=== PATIENT | female | born 2000 | race African-American/Black ===

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

== ENCOUNTER 2019-02-15 21:11 | Emergency (ER) | payer SELFPAY ==
[~2019-02-15] VITALS: Ht 167.6 cm; Wt 72.6 kg
--- NOTE | 2019-02-15 21:45 | PHYS DOC ---
Past Medical History Past Medical History: No Pertinent History Past Surgical History: No Surgical History Additional Past Surgical Histo: abcess removed from vocal cords x2 Alcohol Use: None Drug Use: None Adult General Chief Complaint Chief Complaint: VAGINAL BLEEDING HPI HPI Patient is a 18 year old female who presents with complaining of abdominal pain in . Patient states she had LMP of January 06 and because of morning nausea and vomiting that started 4 days ago, took home test that was positive. Patient complaining of left lower abdominal cramping for the last 2 days as a moderate pain and rated her pain 6/10 without having pain at arrival to ER. Patient also complaining of thinking vaginal discharge for the last or 2 days and states she had had the same symptoms with starting her menstruation. She denies urinary symptoms, pain during intercourse, fever and chills. Review of Systems Review of Systems Constitutional: Denies fever or chills [] Eyes: Denies change in visual acuity, redness, or eye pain [] HENT: Denies nasal congestion or sore throat [] Respiratory: Denies cough or shortness of breath [] Cardiovascular: No additional information not addressed in HPI [] GI: Reports abdominal pain, nausea, vomiting, denies bloody stools or diarrhea [] : Denies dysuria or hematuria [] Musculoskeletal: Denies back pain or joint pain [] Integument: Denies rash or skin lesions [] Neurologic: Denies headache, focal weakness or sensory changes [] Endocrine: Denies polyuria or polydipsia [] All other systems were reviewed and found to be within normal limits, except as documented in this note. Physical Exam Physical Exam Constitutional: Well developed, well nourished, no acute distress, non-toxic appearance. [] HENT: Normocephalic, atraumatic. Eyes: PERRLA, EOMI, conjunctiva normal, no discharge. [] Neck: Normal range of motion, no tenderness, supple, no stridor. [] Cardiovascular:Heart rate regular rhythm, no murmur [] Lungs & Thorax: Bilateral breath sounds clear to auscultation [] Abdomen: Bowel sounds normal, soft, no tenderness, no masses, no pulsatile masses. Patient refuses vaginal exam.[] Skin: Warm, dry, no erythema, no rash. [] Back: No tenderness, no CVA tenderness. [] Extremities: No tenderness, no cyanosis, no clubbing, ROM intact, no edema. [] Neurologic: Alert and oriented X 3, no focal deficits noted. [] Psychologic: Affect normal, judgement normal, mood normal. [] Current Patient Data Vital Signs Vital Signs Date Time Temp Pulse Resp B/P (MAP) Pulse Ox O2 Delivery O2 Flow Rate FiO2 02/15/19 23:27 64 14 109/55 (73) 99 Room Air 02/15/19 21:33 98.5 98.5 Lab Values Laboratory Tests Test 02/15/19 21:30 02/15/19 22:09 Urine Collection Type Unknown Urine Color Yellow Urine Clarity Clear Urine pH 7.5 Urine Specific [place] 1.015 Urine Protein Negative mg/dL (NEG-TRACE) Urine Glucose (UA) Negative mg/dL (NEG) Urine Ketones (Stick) Negative mg/dL (NEG) Urine Blood Negative (NEG) Urine Nitrite Negative (NEG) Urine Bilirubin Negative (NEG) Urine Urobilinogen Dipstick 1.0 mg/dL (0.2 mg/dL) Urine Leukocyte Esterase Small (NEG) Urine RBC Occ /HPF (0-2) Urine WBC Occ /HPF (0-4) Urine Squamous Epithelial Cells Mod /LPF Urine Bacteria 0 /HPF (0-FEW) Urine Trichomonas Present POC Urine HCG, Qualitative Hcg positive (Negative) White Blood Count 9.4 x10^3/uL (4.0-11.0) Red Blood Count 4.44 x10^6/uL (3.50-5.40) Hemoglobin 12.2 g/dL (12.0-15.5) Hematocrit 36.3 % (36.0-47.0) Mean Corpuscular Volume 82 fL (79-100) Mean Corpuscular Hemoglobin 28 pg (25-35) Mean Corpuscular Hemoglobin Concent 34 g/dL (31-37) Red Cell Distribution Width 14.0 % (11.5-14.5) Platelet Count 227 x10^3/uL (140-400) Neutrophils (%) (Auto) 53 % (31-73) Lymphocytes (%) (Auto) 32 % (24-48) Monocytes (%) (Auto) 10 % (0-9) H Eosinophils (%) (Auto) 4 % (0-3) H Basophils (%) (Auto) 1 % (0-3) Neutrophils # (Auto) 5.0 x10^3/uL (1.8-7.7) Lymphocytes # (Auto) 3.0 x10^3/uL (1.0-4.8) Monocytes # (Auto) 1.0 x10^3/uL (0.0-1.1) Eosinophils # (Auto) 0.4 x10^3/uL (0.0-0.7) Basophils # (Auto) 0.1 x10^3/uL (0.0-0.2) Maternal Serum HCG Beta Subunit 70956 mIU/mL (0-5) H Laboratory Tests 02/15/19 22:09 EKG EKG [] Radiology/Procedures Radiology/Procedures [][facility] [address] [place], [place] [id number] IMAGING REPORT Signed PATIENT: KEATON JUDD ACCOUNT: [id number] : 2000 LOCATION: ER AGE: 18 SEX: F EXAM STATUS: REG ER ORD. PHYSICIAN: SIDNEY DALTON MD REASON: LLQ pain PROCEDURE: OB <14 WKS W/TV EXAM: OBSTETRIC ULTRASOUND, <14 WEEKS. HISTORY: Left pelvic and lower quadrant pain in . COMPARISON: None. FINDINGS: Sonographic evaluation of the pelvis was performed transabdominally and transvaginally. The uterus is anteverted and measures 8.9 x 7.2 x 4.9 cm. There is a single intrauterine gestation measuring 6 weeks 5 days based on crown-rump length 0.75 cm. heart rate is 117 bpm. A yolk sac is visualized. The gestational sac is regular. There is no subchorionic collection. The cervix is closed and measures 4.2 cm. The right ovary measures 3.3 x 1.7 x 1.5 cm. The left ovary measures 3.3 x 3.2 x 2.7 cm. It contains a complicated cyst or follicle measuring 2.2 x 1.3 cm. There is normal Doppler flow bilaterally. A small amount of free pelvic fluid is likely physiologic. IMPRESSION: 1. Single intrauterine gestation measuring 6 weeks 5 days. heart rate 117 bpm. 2. 2.2 cm complicated/hemorrhagic left ovarian follicle or small cyst. Electronically signed by: Farshad Putnam MD (02/15/2019 11:13 PM) [facility] DICTATED and SIGNED BY: MARYLOU PUTNAM MD DATE: 02/15/19 2313 Course & Med Decision Making Course & Med Decision Making Pertinent Labs and Imaging studies reviewed. (See chart for details) Evaluation of patient in ER showed 18-year-old female patient with complaining of abdominal pain in . Patient had unremarkable physical exam. Ultrasound showed intrauterine at 6 and 5 days with normal heart rate. She had a positive blood type. UA showed Trichomonas. Patient was advised to follow up with her PRINCIPAL TECHNICAL WRITER for care and treatment of STD. Dragon Disclaimer Dragon Disclaimer This electronic medical record was generated, in whole or in part, using a voice recognition dictation system. Departure Departure Impression: Primary Impression: Threatened Additional Impressions: Abdominal pain in Urogenital trichomoniasis Disposition: 01 HOME, SELF-CARE (at 14/09/19) Condition: IMPROVED Referrals: UNKNOWN PCP NAME (PCP) MARYLOU NOYOLA MD Patient Instructions: Abdominal Pain During , Threatened Miscarriage, Trichomoniasis Additional Instructions: Drink plenty of liquids Follow-up with your PRINCIPAL TECHNICAL WRITER in 2 or 3 days Return to ER if not getting better May take Tylenol as needed for pain Problem Qualifiers Additional Impressions: Abdominal pain in Trimester: first trimester Qualified Codes: O26.891 - Other specified related conditions, first trimester; R10.9 - Unspecified abdominal pain SIDNEY DALTON MD Feb 15, 2019 21:45
[2019-02-15 21:48] LABS: BILIRUBIN,URINE NEGATIVE (NEG); CLARITY,URINE CLEAR; COLOR,URINE YELLOW; NITRITE,URINE NEGATIVE (NEG); PH,URINE 7.5; PROTEIN,URINE NEGATIVE (NEG-TRACE)
[2019-02-15 21:52] LABS: RBC,URINE OCC /HPF (0-2); WBC,URINE OCC /HPF (0-4)
[2019-02-15 21:53] LABS: BACTERIA,URINE 0 /HPF (0-FEW); SQUAMOUS EPITHELIAL CELL,UR MOD /LPF; TRICHOMONAS,URINE PRESENT
[2019-02-15 22:16] LABS: BASO # 0.1 x10^3/uL (0.0-0.2); BASO % 1 % (0-3); EOS # 0.4 x10^3/uL (0.0-0.7); EOS % 4 % (0-3); HEMATOCRIT 36.3 % (36.0-47.0); HEMOGLOBIN 12.2 g/dL (12.0-15.5); LYMPH % 32 % (24-48); MEAN CORPUSCULAR HEMOGLOBIN 28 pg (25-35); MEAN CORPUSCULAR HGB CONC 34 g/dL (31-37); MEAN CORPUSCULAR VOLUME 82 fL (79-100); MONO % 10 % (0-9); NEUT % 53 % (31-73); PLATELET COUNT 227 x10^3/uL (140-400); RED BLOOD COUNT 4.44 x10^6/uL (3.50-5.40); WHITE BLOOD COUNT 9.4 x10^3/uL (4.0-11.0)
--- NOTE | 2019-02-15 23:16 | RAD ---
EXAM: OBSTETRIC ULTRASOUND, <14 WEEKS. HISTORY: Left pelvic and lower quadrant pain in . COMPARISON: None. FINDINGS: Sonographic evaluation of the pelvis was performed transabdominally and transvaginally. The uterus is anteverted and measures 8.9 x 7.2 x 4.9 cm. There is a single intrauterine gestation measuring 6 weeks 5 days based on crown-rump length 0.75 cm. heart rate is 117 bpm. A yolk sac is visualized. The gestational sac is regular. There is no subchorionic collection. The cervix is closed and measures 4.2 cm. The right ovary measures 3.3 x 1.7 x 1.5 cm. The left ovary measures 3.3 x 3.2 x 2.7 cm. It contains a complicated cyst or follicle measuring 2.2 x 1.3 cm. There is normal Doppler flow bilaterally. A small amount of free pelvic fluid is likely physiologic. IMPRESSION: 1. Single intrauterine gestation measuring 6 weeks 5 days. heart rate 117 bpm. 2. 2.2 cm complicated/hemorrhagic left ovarian follicle or small cyst. Electronically signed by: Farshad Putnam MD (02/15/2019 11:13 PM) [facility]
[2019-02-15 23:27] VITALS: BP 109/55
== END 2019-02-15 23:28 | disposition home or self-care (01) ==
LOC: ER 21:11
DX: O20.0 Threatened abortion (principal); O23.31 Infections of other parts of urinary tract in pregnancy, first trimester; O21.8 Other vomiting complicating pregnancy; Z3A.01 Less than 8 weeks gestation of pregnancy
CPT/HCPCS: 36415; 76801; 76817; 81001; 81025; 84702; 85025; 86900; 86901; 87086; 99285-25

== ENCOUNTER → 2019-06-11 | Outpatient (CLI) | payer MEDICAID ==
--- NOTE | 2019-06-11 09:02 | RAD ---
Clinical indications: Evaluation for age and growth. COMPARISON: February 15, 2019. Findings: A single intrauterine fetus is seen in breech position. heart rate is 132 beats per minute. BPD is 5.7 cm which equals 23 weeks 3 days. HC is 21.24 cm which equals 23 weeks 2 days. AC is 18.12 cm which equals 23 weeks 0 days. FL is 3.94 cm which equals 22 weeks 5 days. Average gestational age by ultrasound is 23 weeks 1 day +/- 12 days with an EDC of October 07, 2019. There has been normal interval growth. Estimated weight is 1 lbs and 3 oz. A four-chamber heart and three-vessel cord are identified. stomach and urinary bladder are identified. kidneys are unremarkable. Cord insertion site is unremarkable. The intracranial structures and spine are morphologically normal in appearance. The ventricular trigone measurement is 7 mm. Cisterna magna measurement is 5.0 mm. Four extremities are identified. Normal amount of amniotic fluid is evident. Cervical length is 3.8 cm. A grade 0 anterior placenta is seen. No placenta previa and no placenta abruptio is identified. The maternal ovaries are not visualized. Impression: Single IUP with gestational age of 23 weeks 1 day. Electronically signed by: Gilmar Uribe MD (06/11/2019 8:59 AM) [facility]
== END | disposition home or self-care (01) ==
LOC: US 07:32
PROVIDERS: ATTEND Obstetrics & Gynecology
DX: Z34.92 Encounter for supervision of normal pregnancy, unspecified, second trimester (principal); Z3A.23 23 weeks gestation of pregnancy
CPT/HCPCS: 76805

== ENCOUNTER → 2019-09-17 | Outpatient (CLI) | payer MEDICAID ==
--- NOTE | 2019-09-17 15:11 | RAD ---
OB ULTRASOUND, > 14 WEEKS Clinical Indication: growth. Third trimester . Comparison: Obstetric ultrasound, 06/11/2019. Technique: Multiple grayscale images, color Doppler, and M-mode images of the uterus are obtained. Findings: There is a single intrauterine gestation in cephalic presentation. The placenta is anterior in location without evidence of placenta previa. The amount of amniotic fluid appears appropriate. Amniotic fluid index is 8.2 cm. The cervix is obscured due to cephalic position. Biometrical data: BPD = 8.8 cm for 35 weeks 4 days. HC = 31.6 cm for 35 weeks 4 days. AC = 30.9 cm for 34 weeks 6 days. FL = 6.7 cm for 34 weeks 2 days. HC/AC ratio = 1.02. Overall, the estimated sonographic gestational age is 35 weeks and 1 day for an estimated date of delivery of October 21, 2019. The estimated date of delivery provided by the last menstrual period is 36 weeks and 3 days. Estimated weight is 2523 +/- 373 grams. A 4 chamber heart is identified with positive cardiac activity. The estimated heart rate is 137 beats per minute. A complete anatomic survey is not performed due to advanced gestational age. Impression: Single live intrauterine with estimated sonographic gestational age of 35 weeks and 1 day. Electronically signed by: Guillermo Warner MD (09/17/2019 3:08 PM) [id number]
== END | disposition home or self-care (01) ==
LOC: US 14:03
PROVIDERS: ATTEND Obstetrics & Gynecology
DX: Z34.93 Encounter for supervision of normal pregnancy, unspecified, third trimester (principal); Z3A.35 35 weeks gestation of pregnancy
CPT/HCPCS: 76805